=== PATIENT | male | born 1965 | race Caucasian/White ===

== ENCOUNTER 2019-03-04 19:45 | Emergency (ER) | payer SELFPAY ==
[2019-03-04] MEDS ORDERED: ONDANSETRON 4 MG TAB.RAPDIS PO ONE (20:17)
[2019-03-04] MEDS ORDERED: ASPIRIN 81 MG TABLET, CHEWABLE PO ONE (20:17)
--- NOTE | 2019-03-04 20:19 | ER Document Report ---
ED Medical Screen (RME) - General Chief Complaint: Chest Pain Stated Complaint: CHEST PAIN Time Seen by Provider: 03/04/19 20:16 Mode of Arrival: Wheelchair Information source: Patient Notes: Patient presents complaining of left-sided chest pain that radiates into the left upper extremity that has been off and on for 3 days but became constant around 3:00 this morning. Patient does report nausea and vomiting x3 episodes. Patient denies any cough. Patient denies any chronic medical problems or surgeries. I have greeted and performed a rapid initial assessment of this patient. A comprehensive ED assessment and evaluation of the patient, analysis of test results and completion of the medical decision making process will be conducted by additional ED providers. TRAVEL OUTSIDE OF THE [place] IN LAST 30 DAYS: No - Related Data Allergies/Adverse Reactions: No Known Allergies Allergy (Verified 03/04/19 20:17) Past Medical History - Social History Frequency of alcohol use: None Drug Abuse: None Renal/ Medical History: Denies: Hx Peritoneal Dialysis Physical Exam - Vital signs Vitals: Temp Pulse Resp BP Pulse Ox 98.4 F 84 16 181/87 H 96 03/04/19 19:57 03/04/19 19:57 03/04/19 19:57 03/04/19 19:57 03/04/19 19:57 - Respiratory Respiratory status: No respiratory distress Chest status: Tender Breath sounds: Normal - Cardiovascular Rhythm: Regular Heart sounds: S1 appreciated, S2 appreciated Course - Vital Signs Vital signs: Temp Pulse Resp BP Pulse Ox 98.4 F 84 16 181/87 H 96 03/04/19 19:57 03/04/19 19:57 03/04/19 19:57 03/04/19 19:57 03/04/19 19:57
[2019-03-04 20:51] LABS: ABSOLUTE BASOPHILS # (AUTO) 0.1 10^3/uL (0.0-0.2); ABSOLUTE EOSINOPHILS # (AUTO) 0.4 10^3/uL (0.0-0.6); ABSOLUTE LYMPHOCYTES (AUTO) 4.2 10^3/uL (0.5-4.7); ABSOLUTE MONOCYTES (AUTO) 0.9 10^3/uL (0.1-1.4); ABSOLUTE NEUT (AUTO) 5.5 10^3/uL (1.7-8.2); BASOPHILS % (AUTO) 0.7 % (0-2); EOSINOPHILS % (AUTO) 3.3 % (0-6); LYMPHOCYTES % (AUTO) 37.7 % (13-45); MEAN CORPUSCULAR HEMOGLOBIN 30.7 pg (27.0-33.4); MEAN CORPUSCULAR HGB CONC 35.7 g/dL (32.0-36.0); MEAN CORPUSCULAR VOLUME 86 fl (80-97); MONOCYTES % (AUTO) 8.3 % (3-13); PLATELET COUNT 252 10^3/uL (150-450); RED BLOOD COUNT 4.88 10^6/uL (4.35-5.55); RED CELL DISTRIBUTION WIDTH 13.1 % (11.5-14.0); TOTAL CELLS COUNTED % (AUTO) 100 %
[2019-03-04 21:06] LABS: ALANINE AMINOTRANSFERASE 34 U/L (21-72); ALBUMIN 4.4 g/dL (3.5-5.0); ALKALINE PHOSPHATASE 145 U/L (38-126); ANION GAP 12 (5-19); ASPARTATE AMINO TRANSFERASE 26 U/L (17-59); BILIRUBIN,DIRECT 0.3 mg/dL (0.0-0.4); BILIRUBIN,TOTAL 0.6 mg/dL (0.2-1.3); BLOOD UREA NITROGEN 11 mg/dL (7-20); CALCIUM 9.7 mg/dL (8.4-10.2); CARBON DIOXIDE 22 mmol/L (22-30); CHLORIDE 97 mmol/L (98-107); CREATINE KINASE 136 U/L (55-170); POTASSIUM 4.2 mmol/L (3.6-5.0); TOTAL PROTEIN 7.1 g/dL (6.3-8.2)
--- NOTE | 2019-03-04 21:09 | RADIOLOGY REPORT (SQ) ---
XR CHEST 2 VIEWS HISTORY: Chest pain. COMPARISON: None. FINDINGS: The heart size is normal. No consolidation, pleural effusion, or pneumothorax is seen. There are no acute bony findings. IMPRESSION: No evidence of acute cardiopulmonary disease.
[2019-03-04 21:17] LABS: CREATINE KINASE MB 1.94 ng/mL (<4.55)
[2019-03-04 21:18] LABS: TROPONIN I < 0.012 ng/mL
[2019-03-04 21:19] LABS: GLUCOSE 554 mg/dL (75-110)
[2019-03-04] MEDS ORDERED: NORMAL SALINE 1000 ML 1,000 ML IV ONE (21:20)
[2019-03-04 22:51] LABS: VENOUS BLOOD BASE EXCESS 1.4 mmol/L; VENOUS BLOOD HCO3 26.1 mmol/L (20-32); VENOUS BLOOD PCO2 41.2 mmHg (35-63); VENOUS BLOOD PH 7.42 (7.30-7.42)
[2019-03-05 00:41] VITALS: BP 158/76
--- NOTE | 2019-03-05 03:54 | ER Document Report ---
Entered by YAA DELEON SCRIBE 03/04/19 [id number] Acting as scribe for:MILO VALENTIN DO ED Cardiac - General Chief Complaint: Chest Pain Stated Complaint: CHEST PAIN Time Seen by Provider: 03/04/19 20:16 Primary Care Provider: ADDI LUNA MD [ACTIVE STAFF] - Follow up in 1 week Mode of Arrival: Wheelchair Information source: Patient Notes: 53-year-old male who presents to the emergency department today with complaints of left-sided chest pain with associated shortness of breath, nausea, vomiting, and dizziness. Patient states for the last few days he has noticed that there is an aching sensation in his left chest that radiates down his left arm. Patient states today when driving he felt dizzy, "literally got out and laid on the ground" where he vomited. Patient states he gets associated shortness of breath when this chest pain begins. Patient states he has no change in his pain with increased exertion. Patient does smoke. Patient adds that he has not seen a doctor in "decades" so he is unsure of any significant past medical history. TRAVEL OUTSIDE OF THE [place] 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 Lives with: Family Family History: Reviewed & Not Pertinent Patient has suicidal ideation: No Patient has homicidal ideation: No - Medical History Medical History: Negative Surgical Hx: Negative Review of Systems - Review of Systems Constitutional: No symptoms reported EENT: No symptoms reported Cardiovascular: See HPI, Chest pain, Dizziness Respiratory: See HPI, Short of breath Gastrointestinal: See HPI, Nausea, Vomiting Genitourinary: No symptoms reported Male Genitourinary: No symptoms reported Musculoskeletal: No symptoms reported Skin: No symptoms reported Hematologic/Lymphatic: No symptoms reported Neurological/Psychological: No symptoms reported -: Yes All other systems reviewed and negative Physical Exam - Vital signs Vitals: Temp Pulse Resp BP Pulse Ox 98.4 F 84 16 181/87 H 96 03/04/19 19:57 03/04/19 19:57 03/04/19 19:57 03/04/19 19:57 03/04/19 19:57 - Notes Notes: PHYSICAL EXAM GENERAL: Alert, interacts well. No acute distress. HEAD: Normocephalic, atraumatic. EYES: Pupils equal, round, and reactive to light. Extraocular movements intact. ENT: Oral mucosa moist, tongue midline. NECK: Full range of motion. Supple. Trachea midline. LUNGS: Clear to auscultation bilaterally, no wheezes, rales, or rhonchi. No respiratory distress. HEART: Regular rate and rhythm. No murmurs, gallops, or rubs. ABDOMEN: Soft, non-tender. Non-distended. Bowel sounds present in all 4 quadrants. No guarding, rigidity, or rebound. EXTREMITIES: Moves all 4 extremities spontaneously. No edema, radial and dorsalis pedis pulses 2/4 bilaterally. No cyanosis. NEUROLOGICAL: Alert and oriented x3. Normal speech. PSYCH: Normal affect, normal mood. SKIN: Warm, dry, normal turgor. No rashes or lesions noted. Course - Re-evaluation Re-evalutation: 03/04/19 23:29 CBC shows mild leukocytosis with a white blood cell count of 11.0, venous blood gas unremarkable, sodium low 131.0, glucose elevated at 554, patient has no hi story of diabetes, troponin is negative initially at 0.012, chest x-ray shows no acute process. EKG shows left ventricular hypertrophy with secondary repolarization abnormalities as well as concern for possible ischemic changes. I did have an extensive discussion with patient regarding his risk factors for acute coronary syndrome specifically non-STEMI. Also discussed with the patient the fact that he is a newly diagnosed diabetic, I told him that he needs to be admitted to the hospital overnight, trend out his cardiac enzymes and likely have a stress test or a heart catheter. Also discussed the importance of following up on what appears to be new hypertension, diabetes and he needs to be assessed for hyperlipidemia as well. Patient refuses to be admitted. States that he is too busy right now to be admitted acknowledges the risk of , disabling heart attack or other unforeseen complications. Acknowledges the need for close follow-up as an outpatient. Patient will be started on antihypertensives and metformin. Will be referred to Dr. Luna as well as a local primary care physician. Patient was encouraged to return at any time and specifically encouraged to return for worsening or ongoing chest pain. is in the room at the same time, both were provided with time to ask questions, patient continues to refuse admission, appears somewhat uncomfortable with this plan but does not do anything to make him stay. - Vital Signs Vital signs: Temp Pulse Resp BP Pulse Ox 98 F 76 18 158/76 H 98 03/04/19 23:40 03/04/19 23:40 03/04/19 23:40 03/04/19 23:40 03/04/19 23:40 - Laboratory Result Diagrams: 03/04/19 20:30 03/04/19 20:30 Laboratory results interpreted by me: 03/04/19 03/04/19 20:30 20:30 WBC 11.0 H Sodium 131.0 L Chloride 97 L Glucose 554 H* Alkaline Phosphatase 145 H - EKG Interpretation by Me Additional EKG results interpreted by me: 03/04/19 23:30 EKG shows sinus rhythm at a rate of 88, left axis deviation, interventricular conduction delay with QRS of 106, T wave inversions in 1, aVL, V5 and V6, [address] segment elevation in V2, [address] segment elevation in 1, does not meet STEMI criteria per my interpretation. Discharge - Discharge Clinical Impression: Chest pain with high risk of acute coronary syndrome, Diabetes mellitus, new onset, Hypertension associated with diabetes Condition: Fair Disposition: AGAINST MEDICAL ADVICE Additional Instructions: Today we discussed that I am very concerned that you are at high risk for having a heart attack. We also discussed that you may be in the process of having a heart attack but we cannot determine this until we have done 2 more sets of blood work. I have encouraged you to be admitted to the hospital overnight for further workup and treatment of your chest pain, high blood pressure and new onset diabetes. You have chosen to leave AGAINST MEDICAL ADVICE and instead pursue outpatient treatment at a time that is more convenient to your schedule and to do your own research into high blood pressure, diabetes and cardiac disease. You are welcome to return to the emergency department at any time. Particularly return if your chest pain continues or worsens. You need to cut sugar out of your diet including sugary drinks. Decrease the amount of carbohydrates that you eat such as rice, potatoes and pasta. Please take the metformin as directed. It can cause mild nausea and mild diarrhea. Please take keep taking it anyway. This is what will decrease your blood sugar. Please also take the hydrochlorothiazide. This will help to decrease your blood pressure. Drink plenty of xoy-meoii-xgxopnmyim fluids such as water. Even sports drinks such as Gatorade and Powerade contain sugar. Do not drink them. Prescriptions: Hydrochlorothiazide [Hydrodiuril 25 mg Tablet] 25 mg PO BID #60 tablet Metformin HCl [Glucophage 500 mg Tablet] 500 mg PO BID #60 tablet Referrals: ADDI LUNA MD [ACTIVE STAFF] - Follow up in 1 week I personally performed the services described in the documentation, reviewed and edited the documentation which was dictated to the scribe in my presence, and it accurately records my words and actions.
--- NOTE | 2019-03-05 13:09 | EKG REPORT ---
SEVERITY:- ABNORMAL ECG - SINUS RHYTHM LVH WITH SECONDARY REPOLARIZATION ABNORMALITY : Confirmed by: Dat Brantley 05-Mar-2019 13:09:10
== END 2019-03-04 23:40 | disposition left against medical advice (07) ==
LOC: ER 19:45
DX: R07.9 Chest pain, unspecified (principal); R06.02 Shortness of breath; R11.2 Nausea with vomiting, unspecified; R42 Dizziness and giddiness; E11.9 Type 2 diabetes mellitus without complications; I10 Essential (primary) hypertension
CPT/HCPCS: 93005; 99285; 96360; 96361; 36415; 82553; 82550; 85025; 80053; 84484; 82803; 71046; 93010; S0119; J7030

== ENCOUNTER 2019-04-03 22:51 | Emergency (ER) | payer OTHER ==
[2019-04-03 23:16] VITALS: BP 142/64
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
== END 2019-04-04 01:15 | disposition home or self-care (01) ==
LOC: ER 22:51
DX: S16.1XXA Strain of muscle, fascia and tendon at neck level, initial encounter (principal); S39.012A Strain of muscle, fascia and tendon of lower back, initial encounter; M54.89 Other dorsalgia; X50.0XXA Overexertion from strenuous movement or load, initial encounter; Y93.89 Activity, other specified; Y92.810 Car as the place of occurrence of the external cause; F17.210 Nicotine dependence, cigarettes, uncomplicated
CPT/HCPCS: 99283